=== PATIENT | female | born 1955 | race Caucasian/White ===

== ENCOUNTER → 2018-03-21 | Outpatient (CLI) | payer MEDICARE, MEDICAID ==
[~2018-03-21] MED LIST: ARANESP0.04 MG/0. IV; ASPIRIN CHEWABL81 M1 PO; BIOFLAX1000 MG PO; CALCIUM 1200 W/1 SGL PO; COLACE100 MG PO; FAMOTIDINE20 M1 PO; FAMOTIDINE20 MG PO; FERROUS SULFAT325 M1 PO; FOSRENOL1000 MG PO; GABAPENTIN100 M2 PO; GEMFIBROZIL600 MG PO; GLIPIZIDE XL5 MG PO; LIPITOR40 MG PO; LISINOPRIL-HYDR1 TA1 PO; LISINOPRIL20 MG PO; Metformin Hydr500 MG PO; NAPROSYN500 MG PO; NORCO 325 MG-51 TAB PO; PARVA-CAL 5001 EACH PO; PHOS LO667 MG PO; PREDNISONE5 MG PO; RENVELA800 MG PO; SIMVASTATIN40 MG PO; STOOL SOFTENER100 MG PO; TRIPHROCAPS SOFT1 MG PO; VITAMIN D32000 IU PO; [UNRECOGNIZED DRUG - OTHER]
== END | disposition home or self-care (01) ==
LOC: MAMMO 14:35
DX: Z12.31 Encounter for screening mammogram for malignant neoplasm of breast (principal)

== ENCOUNTER → 2018-05-25 | Outpatient (CLI) | payer MEDICARE, MEDICAID ==
[~2018-05-25] MED LIST changes: +ATORVASTATIN CA40 M1 PO; +LEVOFLOXACIN500 MG PO
== END | disposition home or self-care (01) ==
LOC: CARD 13:29
DX: Z01.818 Encounter for other preprocedural examination (principal); N19 Unspecified kidney failure; Z94.0 Kidney transplant status; Z99.2 Dependence on renal dialysis

== ENCOUNTER → 2018-07-05 | Outpatient (CLI) | payer MEDICARE, MEDICAID | END | disposition home or self-care (01) | LOC: ORTHO 01:32 | DX: M17.11 Unilateral primary osteoarthritis, right knee (principal) ==

== ENCOUNTER 2018-09-22 04:31 | Inpatient (IN) | payer MEDICARE, MEDICAID ==
[2018-09-22] VITALS (10 sets, daily range): BP systolic 85–136; BP diastolic 38–81
[~2018-09-22] VITALS: Ht 170.2 cm; Wt 96.8 kg
--- NOTE | ~2018-09-22 | PR ---
[place], [place] PROGRESS NOTE [id number] UN[facility] #: [id number] ROOM: 515 DOCTOR: MARY JO CASTILLO MD BIRTHDATE: [birth year] DOS: 09/24/2018 SUBJECTIVE: The patient was seen and examined. She is awake and alert, appears to be doing well. She denies shortness of breath, fevers, chills or night sweats. PHYSICAL EXAMINATION: VITAL SIGNS: Temperature 98.1, pulse 67, respiratory rate 18, blood pressure 123/59. HEENT: Shows no JVD. LUNGS: Clear. HEART: S1, S2. No rub. ABDOMEN: Soft, nontender. EXTREMITIES: Showed no edema. SKIN: Showed no rash. LABORATORY DATA: From September 23, potassium 4.0, BUN 42, creatinine 6.2; hemoglobin 13.9, white count of 8.2, platelets 136. Blood cultures and urine culture showed no growth to date. ASSESSMENT AND PLAN: 1. End-stage renal disease, on hemodialysis Tuesday, Tuesday and Tuesday through an upper extremity AV fistula. The patient will have dialysis tomorrow as per her normal schedule. Dose meds for end-stage renal disease. 2. Lower extremity weakness. The etiology is not clear. The patient has been started on antibiotics for what seems to be a questionable urinary tract infection. This seems consistent with contamination and her culture was negative. Would recommend discontinuing antibiotics. 3. Hyperphosphatemia. Continue phosphorus binders. 4. Neuropathy. Continue meds. 5. Mild troponin elevation. Cardiology has been consulted. 6. Consider discharge after dialysis tomorrow. MARY JO CASTILLO MD CM:PNTRANS [id number] MARY JO CASTILLO MD 09/25/18 0012 interface
--- NOTE | ~2018-09-22 | CON ---
[place], [place] REPORT OF CONSULTATION NAME: NINA RUIZ UNIT #: [id number] ROOM: 515 DOCTOR: MARY JO CASTILLO MD BIRTHDATE: [birth year] DOS: 09/23/2018 NEPHROLOGY CONSULTATION REASON FOR CONSULTATION: Management of dialysis/patient known to you. HISTORY OF PRESENT ILLNESS: A 63-year-old female. She has a history of end-stage renal disease. She undergoes dialysis Tuesday, Tuesday and Tuesday through a right upper extremity AV fistula. She dialyzes at [facility] under the care of our practice. The patient apparently presented to the hospital with weakness in the legs. She had a low-grade temperature as well. She had mild troponin elevations and mild elevated white count and she was started on antibiotics and Cardiology was consulted. She tells me she is feeling better. The patient did have her dialysis yesterday by orders given to the dialysis nurse. She reported no issues. She currently denies shortness of breath, fevers, chills or night sweats. Denies nausea or vomiting. The patient did have her dialysis treatment cut short yesterday due to her access clotting about 45 minutes early. I was notified of this and ordered that she did not need to be set up again to continue or complete her treatment. ALLERGIES: LISTED TO VANCOMYCIN. HOME MEDICATIONS: Included Fosrenol, atorvastatin, Triphrocaps, glipizide, gemfibrozil, gabapentin and aspirin. It seems she also was on lisinopril. PAST MEDICAL HISTORY: 1. End-stage renal disease, on hemodialysis as stated above. 2. Right upper extremity AV fistula. 3. Hypertension. 4. History of knee element. 5. Polycystic kidney disease. 6. Diabetes mellitus. 7. History of back surgery. 8. Tubal ligation. 9. Apparent previous kidney transplant. 10. Neuropathy. 11. Hyperlipidemia. FAMILY HISTORY: The patient has other family members with polycystic kidney disease. Otherwise, noncontributory. SOCIAL HISTORY: No tobacco, alcohol or illicit drugs. REVIEW OF SYSTEMS: As per HPI, otherwise a 10-point review of systems was reviewed and was negative. PHYSICAL EXAMINATION: VITAL SIGNS: Temperature 97.4, pulse 60, respiration rate 16, blood pressure 110/80. GENERAL: She is pleasant, alert, awake, oriented x 3, no acute distress. [place], [place] REPORT OF CONSULTATION NAME: NINA RUIZ UNIT #: [id number] ROOM: 515 DOCTOR: MARY JO CASTILLO MD BIRTHDATE: [birth year] HEENT: Shows no JVD. Sclerae are anicteric. Mucous membranes are moist. Oropharynx is clear. NECK: Supple. Trachea is midline. No lymphadenopathy or thyromegaly. LUNGS: Clear, no crackles or rales. There is no tactile fremitus. She is not using accessory muscles of respiration. HEART: S1, S2. No rub. No thrill or gallop. ABDOMEN: Soft, nontender. There is no organomegaly or rigidity, rebound or guarding. There is no CVA tenderness. EXTREMITIES: No edema. No lower extremity lymphadenopathy. Distal pulses are 2+. SKIN: Showed no overt rash. There is no petechia or purpura. Skin temperature is warm. NEUROLOGIC: She is awake, alert and following commands. Cranial nerves are intact. DIAGNOSTIC DATA: Hemoglobin 13.9, white count of 8.2, platelets 136. Sodium is 130, potassium 4.0, BUN 42, creatinine 6.2, CO2 of 30, calcium 8.9, phosphorus 3.5 and magnesium 2.4. IMPRESSION: 1. End-stage renal disease on hemodialysis Tuesday, Tuesday, Tuesday through an upper extremity AV fistula. 2. Lower extremity weakness. 3. Mild troponin elevation. 4. Hyperlipidemia. 5. Hyperphosphatemia. 6. Neuropathy. 7. History of polycystic kidney disease. PLAN: 1. We will continue dialysis as per normal schedule. 2. Dose meds for end-stage renal disease. 3. The patient has been started on antibiotics. Her urine culture seems consistent with a contamination due too numerous to count epithelial cells. Consider stopping antibiotics. 4. Home medications. 5. Await plans. Thank you for this consultation. We will follow with you. [place], [place] REPORT OF CONSULTATION NAME: NINA RUIZ UNIT #: [id number] ROOM: 515 DOCTOR: MARY JO CASTILLO MD BIRTHDATE: [birth year] MARY JO CASTILLO MD CM:CONSTR:REPORT OF CONSULTATION 1415 09/24/18 0137 interface
--- NOTE | ~2018-09-22 | EKG ---
[place], [place] ELECTROCARDIOGRAM REPORT NAME: NINA RUIZ UNIT #: [id number] ROOM: 515 DOCTOR: EPIPHANY DRAFT REPORT BIRTHDATE: [birth year] [facility] Test Date: 2018-09-22 Test Time: 04:35:15 Pat Name: NINA RUIZ Department: Room: [facility] Gender: F Hi Lift Operator: : 1955 Requested By: SHMUEL FRANCISCO Order Number: [id number] Reading MD: Sravanthi Silveira MD Measurements Intervals [place] Rate: 93 P: 0 ND: 156 QRS: -1 QRSD: 92 T: 23 QT: 339 QTc: 422 Interpretive Statements Sinus rhythm Low voltage, precordial leads Abnormal R-wave progression, late transition No previous ECG available for comparison Electronically Signed On 09-22-2018 5:06:49 PDT by Sravanthi Silveira MD CM:EKGRPT:ELECTROCARDIOGRAM REPORT [id number] SHMUEL FRANCISCO MD EPIPHANY DRAFT REPORT SHMUEL FRANCISCO MD
--- NOTE | ~2018-09-22 | EKG ---
[place], [place] ELECTROCARDIOGRAM REPORT NAME: NINA RUIZ UNIT #: [id number] ROOM: 515 DOCTOR: EPIPHANY DRAFT REPORT BIRTHDATE: [birth year] [facility] Test Date: 2018-09-22 Test Time: 11:03:01 Pat Name: NINA RUIZ Department: Room: [facility] Gender: F Assistant Designer: Shira Flanagan : 1955 Requested By: SHMUEL FRANCISCO Order Number: [id number] Reading MD: Sravanthi Silveira MD Measurements Intervals [place] Rate: 62 P: 32 CO: 177 QRS: 15 QRSD: 100 T: 33 QT: 438 QTc: 445 Interpretive Statements Sinus rhythm Consider anterior infarct Compared to ECG 09/22/2018 07:26:49 Myocardial infarct finding now present Electronically Signed On 09-22-2018 15:32:51 PDT by Sravanthi Silveira MD CM:EKGRPT:ELECTROCARDIOGRAM REPORT [id number] SHMUEL FRANCISCO MD EPIPHANY DRAFT REPORT SHMUEL FRANCISCO MD
--- NOTE | ~2018-09-22 | EKG ---
[place], [place] ELECTROCARDIOGRAM REPORT NAME: NINA RUIZ UNIT #: [id number] ROOM: 515 DOCTOR: EPIPHANY DRAFT REPORT BIRTHDATE: [birth year] [facility] Test Date: 2018-09-22 Test Time: 07:26:49 Pat Name: NINA RUIZ Department: Room: [facility] Gender: F Hardboard Coating Machine Operator: Shira Flanagan : 1955 Requested By: SHMUEL FRANCISCO Order Number: [id number] Reading MD: Sravanthi Silveira MD Measurements Intervals [place] Rate: 66 P: 39 WA: 156 QRS: 53 QRSD: 93 T: 59 QT: 426 QTc: 447 Interpretive Statements Sinus rhythm Low voltage, extremity and precordial leads No previous ECG available for comparison Electronically Signed On 09-22-2018 5:07:36 PDT by Sravanthi Silveira MD CM:EKGRPT:ELECTROCARDIOGRAM REPORT [id number] SHMUEL FRANCISCO MD EPIPHANY DRAFT REPORT SHMUEL FRANCISCO MD
[~2018-09-22 04:31] MED LIST changes: -ATORVASTATIN CA40 M1 PO; -LEVOFLOXACIN500 MG PO
[2018-09-22 05:11] LABS: HEMATOCRIT 44.1 % (37.0-47.0); HEMOGLOBIN 13.6 g/dl (12.0-16.0); MEAN CELL VOLUME 95.7 fl (81.0-99.0); MEAN CORPUSCULAR HGB 29.5 pg (27.0-31.0); MEAN CORPUSCULAR HGB CONC 30.8 g/dl (33.0-37.0); MEAN PLATELET VOLUME 10.8 fl (9.6-12.3); PLATELET COUNT AUTOMATED 165 10*3/uL (130-400); RED BLOOD COUNT 4.61 10*6/uL (4.10-5.10); RED CELL DISTRI WIDTH 17.2 % (0-14.5); WHITE BLOOD COUNT 12.4 10*3/uL (4.8-10.8)
[2018-09-22 05:22] LABS: ACT PARTIAL THROMBO TIME 28.2 SECONDS (20.0-32.1); INTERNATIONAL NORM RATIO 1.1 (2.0-3.5)
[2018-09-22 05:25] LABS: PHOSPHOROUS 1.6 mg/dL (2.5-4.9)
[2018-09-22 05:30] LABS: BASOPHILS 1 % (0-1); TOTAL CELLS COUNTED 100 #CELLS
[2018-09-22 05:31] LABS: ALBUMIN 3.4 gm/dl (3.1-4.5); CREATININE 8.28 mg/dL (0.55-1.02); PLATELET SUFFICIENCY NORMAL (NORMAL); POTASSIUM 4.7 mmol/L (3.5-5.1); TOTAL PROTEIN 8.1 gm/dL (6.4-8.2)
[2018-09-22 05:34] LABS: TROPONIN I 0.119 ng/ml (<0.045)
--- NOTE | 2018-09-22 05:34 | NUR ---
LAB CALLED WITH CRITICAL LACTIC LEVEL OF 2.4 AND TROPONIN 0.119. NOTIFIED.
--- NOTE | 2018-09-22 07:30 | NUR ---
A 63, admitted to 5E, under the services of JOANNE Paulino MD with a diagnosis of SEPSIS, END STAGE RENAL DISEASE ON DIALYSIS. Chief complaint is WEAKNESS. Patient arrived via bed from ER. Initial assessment completed. Vital signs taken and recorded. JOANNE PAULINO MD notified of admission to the unit. Orders received. See assessment for past medical history, medications and allergies. Patient and/or family oriented to unit. [address] visitation policy reviewed. Clothing/patient valuable form completed. SKIN INTACT. PT WEARS RIGHT KNEE BRACE. FABIAN JADE
[2018-09-22] MEDS ORDERED: ATORVASTATIN CA40 M1 PO (08:23)
--- NOTE | 2018-09-22 08:25 | NUR ---
CALLED DR BANKS FOR ADMISSION ORDERS. ORDERS RECEIVED. DIRECTED TO CALL DR KRISHNAN FOR FURTHER ORDERS. SPOKE TO DR KRISHNAN. HE STATED HE WILL PUT IN ORDERS
--- NOTE | 2018-09-22 08:40 | NUR ---
CALLED DR VENEGAS OFFICE REGARDING PT CONSULT. WAITING ELECTRICAL HARDWARE ENGINEER BACK
--- NOTE | 2018-09-22 08:52 | NUR ---
PTS HOME MEDICATIONS VERIFIED. CONTINUED PER DR BANKS
--- NOTE | 2018-09-22 11:14 | NUR ---
Nutritional Support Services Note: Pt was triggered for a nutritional consult for renal disease diet education. She stated she has numerous diet copies at home with information from the dialysis center she goes to from the RDN there. I had her explain to me foods to limit so I knew she had a good understanding and she does. No nutrition intervention needed at this time. Ellis Negrete [employer] CPD Student
--- NOTE | 2018-09-22 12:41 | NUR ---
CALLED [facility] TO INFORM DR JENKINS OF NEW PT CONSULT. WAITING SURVEY RESEARCH TEACHER BACK
--- NOTE | 2018-09-22 14:41 | NUR ---
Nursing screen received and chart reviewed. Patient admitted with sepsis, generalized weakness and ESRD. If patient should decline in ADLs or mobility then refer to OT. Thank you. Myriam Farmer OTR/L
[2018-09-23] VITALS: BP 88/50
--- NOTE | 2018-09-23 01:00 | NUR ---
Patient sleeping. Respirations relaxed and easy. Siderails up . [place] on. BRANDI RAY
--- NOTE | 2018-09-23 01:46 | NUR ---
24 HR chart check completed.
--- NOTE | 2018-09-23 05:43 | NUR ---
PATIENT SLEPT WELL THROUGHOUT THE NIGHT, RESPIRATIONS EASY AND NON LABORED.
[2018-09-23 07:03] LABS: BASO % 0.2 % (0.0-1.0); EOS # 0.1 10*3/uL (0.0-0.4); EOS % 0.6 % (1.0-4.0); HEMATOCRIT 45.3 % (37.0-47.0); HEMOGLOBIN 13.9 g/dl (12.0-16.0); LYMPH # 0.6 10*3/uL (1.3-4.4); LYMPH % 7.7 % (27.0-41.0); MEAN CELL VOLUME 95.4 fl (81.0-99.0); MEAN CORPUSCULAR HGB 29.3 pg (27.0-31.0); MEAN CORPUSCULAR HGB CONC 30.7 g/dl (33.0-37.0); MEAN PLATELET VOLUME 11.4 fl (9.6-12.3); MONO # 0.5 10*3/uL (0.1-1.0); MONO % 6.6 % (3.0-9.0); NEUT # 6.9 10*3/uL (2.3-7.9); NEUT % 84.5 % (47.0-73.0); PLATELET COUNT AUTOMATED 136 10*3/uL (130-400); RED BLOOD COUNT 4.75 10*6/uL (4.10-5.10); RED CELL DISTRI WIDTH 17.2 % (0-14.5); WHITE BLOOD COUNT 8.2 10*3/uL (4.8-10.8)
[2018-09-23 07:32] LABS: ALBUMIN 3.1 gm/dl (3.1-4.5); CREATININE 6.18 mg/dL (0.55-1.02); PHOSPHOROUS 3.5 mg/dL (2.5-4.9); TOTAL PROTEIN 7.5 gm/dL (6.4-8.2)
--- NOTE | 2018-09-23 07:35 | NUR ---
LAB CALLED WITH CRITICAL LOW BLOOD SUGAR. PT ASYMPTOMATIC. PT DRANK ORANGE JUICE WITH SUGAR PACKETS. WILL RECHECK.
[2018-09-23 08:00] VITALS: BP 120/61
--- NOTE | 2018-09-23 08:00 | NUR ---
PTS BLOOD SUGAR CRITICALLY LOW AT 44. PT REMAINS ASYMPTOMATIC. I ATTEMPTED TO CALL DR FRANCOIS. WAITING ENTRY LEVEL DRAFTER BACK
--- NOTE | 2018-09-23 09:56 | NUR ---
PTS REPEAT BLOOD GLUCOSE 204
[2018-09-23 10:23] LABS: BILIRUBIN NEGATIVE (NEGATIVE); BLOOD 2+ (NEGATIVE); CLARITY CLOUDY (CLEAR); COLOR YELLOW (YELLOW); GLUCOSE NEGATIVE (NEGATIVE); KETONE NEGATIVE (NEGATIVE); LEUKO ESTERASE 2+ (NEGATIVE); NITRITE POSITIVE (NEGATIVE); PH >= 9.0 (5.0-9.0); UROBILINOGEN 0.2 E.U./dl (0.2-1.0)
[2018-09-23 10:38] LABS: BACTERIA 4+; RBC 21-30 rbc/hpf (0-2); WBC TNTC wbc/hpf (0-5)
[2018-09-23 10:41] LABS: EPITHELIAL CELLS TNTC
[2018-09-23 12:00] VITALS: BP 110/80
[2018-09-23 16:00] VITALS: BP 140/68
[2018-09-23 20:00] VITALS: BP 111/60
--- NOTE | 2018-09-23 23:53 | NUR ---
24 HR chart check completed.
[2018-09-24] VITALS: BP 109/40
[2018-09-24 08:00] VITALS: BP 123/59
--- NOTE | 2018-09-24 08:40 | NUR ---
PT RESTING IN BED. NO DISTRESS NOTED. WILL MONITOR
[2018-09-24 12:00] VITALS: BP 145/68
[2018-09-24 16:00] VITALS: BP 141/65
--- NOTE | 2018-09-24 19:15 | NUR ---
ARRIVED ON SHIFT, INTRODUCED TO PATIENT, BEDSIDE REPORT RECIEVED, WHITE BOARD UPDATED NO NEEDS VOICED AT THIS TIME.
[2018-09-24 20:00] VITALS: BP 135/69
--- NOTE | 2018-09-24 22:47 | NUR ---
24 HR chart check completed.
[2018-09-25] VITALS: BP 117/50
--- NOTE | 2018-09-25 02:00 | NUR ---
Patient sleeping. Respirations relaxed and easy. Siderails up 2. [place] on. BRANDI RAY
[2018-09-25 04:00] VITALS: BP 120/60
[2018-09-25 08:00] VITALS: BP 110/66
--- NOTE | 2018-09-25 08:19 | NUR ---
PT RESTING IN BED,. NO DISTRESS NOTED. WILL MONITOR
--- NOTE | 2018-09-25 09:00 | NUR ---
Slimer in to see patient. She is currently not in her room. Will follow up at a later time.
[2018-09-25 09:14] LABS: BASO % 0.3 % (0.0-1.0); EOS # 0.1 10*3/uL (0.0-0.4); EOS % 2.3 % (1.0-4.0); HEMATOCRIT 39.6 % (37.0-47.0); HEMOGLOBIN 12.5 g/dl (12.0-16.0); LYMPH # 0.8 10*3/uL (1.3-4.4); LYMPH % 14.1 % (27.0-41.0); MEAN CELL VOLUME 93.4 fl (81.0-99.0); MEAN CORPUSCULAR HGB 29.5 pg (27.0-31.0); MEAN CORPUSCULAR HGB CONC 31.6 g/dl (33.0-37.0); MEAN PLATELET VOLUME 11.4 fl (9.6-12.3); MONO # 0.4 10*3/uL (0.1-1.0); MONO % 6.1 % (3.0-9.0); NEUT # 4.4 10*3/uL (2.3-7.9); NEUT % 76.9 % (47.0-73.0); PLATELET COUNT AUTOMATED 148 10*3/uL (130-400); RED BLOOD COUNT 4.24 10*6/uL (4.10-5.10); RED CELL DISTRI WIDTH 17.2 % (0-14.5); WHITE BLOOD COUNT 5.8 10*3/uL (4.8-10.8)
[2018-09-25 09:20] LABS: CREATININE 9.37 mg/dL (0.55-1.02); PHOSPHOROUS 2.6 mg/dL (2.5-4.9); POTASSIUM 5.2 mmol/L (3.5-5.1)
--- NOTE | 2018-09-25 14:30 | NUR ---
Abstract Clerk in to talk to patient. Patient states lives at home with her sister. There are 3 steps in the home. Physician: Dr. Paul Meadows Pharmacy: [facility] Home health services: none Patient's level of ADLs: INDEPENDENT Patient has working utilities: yes DME: none Follow-up physician's appointment after d/c: she prefers to make her own follow up appt after discharge Does patient want to access PORTAL?: no Discharge plan discussed with patient. She lives at home with her sister. She is independent in her ADLs and ambulation. Discussed home health care services and she denies any home needs at this time. She is HD MWF, chair time 0515, and she drives herself. When medically stable she will be discharged to home. Her sister will transport on discharge. NAEL PICHARDO
[2018-09-25 16:00] VITALS: BP 112/64
[2018-09-25 20:00] VITALS: BP 112/61
--- NOTE | 2018-09-25 20:52 | NUR ---
24 HR chart check completed.
--- NOTE | 2018-09-25 21:00 | NUR ---
SITTING AT BEDSIDE WITH NO DISTRESS NOTED. RESPIRATIONS EASY. LUNGS DIMINISHED WITH CRACKLES. PULSE OX 97% RA. RIGHT ARM FISTULA NOTED, +THRILL/BRUIT. CALL LIGHT WITHIN REACH. NO VOICED COMPLAINTS
[2018-09-26] VITALS: BP 110/56
--- NOTE | 2018-09-26 | NUR ---
SLEEPING. NO DISTRESS NOTED. RESPIRATIONS EASY. VSS. CALL LIGHT WITHIN REACH
--- NOTE | 2018-09-26 06:00 | NUR ---
SLEPT THROUGHOUT NIGHT WITH NO DISTRESS NOTED. RESPIRATIONS EASY. CALL LIGHT WITHIN REACH. NO VOICED COMPLAINTS THIS SHIFT
[2018-09-26 08:00] VITALS: BP 110/64
--- NOTE | 2018-09-26 08:30 | NUR ---
Weather Reporter in to see patient. No new needs or request at this time. She denies any home needs. When medically stable she will be discharged to home. Dr. Meadows notified of patient has met her hospital days.
[2018-09-26] MEDS ORDERED: LEVOFLOXACIN500 MG PO (11:02)
--- NOTE | 2018-09-26 12:42 | NUR ---
Discharge instructions reviewed with patient/family. Patient receptive and verbalizes understanding. Follow-up care arranged. Written instructions given to patient/family. OUMAR RODRIGUEZ
== END 2018-09-26 12:44 | disposition home or self-care (01) | DRG 871 ==
LOC: ED 04:31 → 5E 06:34 → EDHOLD 06:34 → 5E 07:12
PROVIDERS: Emergency Medicine Emergency Medical Services; Internal Medicine; Internal Medicine Nephrology; ADMIT Internal Medicine
PROC: 5A1D70Z Performance of Urinary Filtration, Intermittent, Less than 6 Hours Per Day (ICD-10-PCS; principal; 2018-09-22)
PROC: 5A1D70Z Performance of Urinary Filtration, Intermittent, Less than 6 Hours Per Day (ICD-10-PCS; 2018-09-25)
DX: A41.1 Sepsis due to other specified staphylococcus (principal); N18.6 End stage renal disease; N30.01 Acute cystitis with hematuria; Z94.0 Kidney transplant status; I12.0 Hypertensive chronic kidney disease with stage 5 chronic kidney disease or end stage renal disease; E83.39 Other disorders of phosphorus metabolism; R79.89 Other specified abnormal findings of blood chemistry; R79.82 Elevated C-reactive protein (CRP); I34.0 Nonrheumatic mitral (valve) insufficiency; E78.2 Mixed hyperlipidemia; E83.41 Hypermagnesemia; N28.1 Cyst of kidney, acquired; E11.22 Type 2 diabetes mellitus with diabetic chronic kidney disease; R53.1 Weakness; E11.40 Type 2 diabetes mellitus with diabetic neuropathy, unspecified; E11.649 Type 2 diabetes mellitus with hypoglycemia without coma; T38.3X5A Adverse effect of insulin and oral hypoglycemic [antidiabetic] drugs, initial encounter; Y92.89 Other specified places as the place of occurrence of the external cause; Z88.1 Allergy status to other antibiotic agents; Z98.51 Tubal ligation status; Z83.3 Family history of diabetes mellitus; Z82.49 Family history of ischemic heart disease and other diseases of the circulatory system; Z80.8 Family history of malignant neoplasm of other organs or systems; Z82.3 Family history of stroke; Z79.82 Long term (current) use of aspirin; Z79.84 Long term (current) use of oral hypoglycemic drugs; Z99.2 Dependence on renal dialysis; Z79.899 Other long term (current) drug therapy; Z84.1 Family history of disorders of kidney and ureter; I95.9 Hypotension, unspecified

== ENCOUNTER → 2019-03-22 | Outpatient (CLI) | payer MEDICARE, MEDICAID ==
[~2019-03-22] MED LIST changes: +ATORVASTATIN CA40 M1 PO; +LEVOFLOXACIN500 MG PO
== END | disposition home or self-care (01) ==
LOC: MAMMO 10:24
DX: Z12.31 Encounter for screening mammogram for malignant neoplasm of breast (principal)

== ENCOUNTER → 2020-05-27 | Outpatient (CLI) | payer MEDICARE, MEDICAID ==
[2020-05-27 14:02] LABS: BASO % 0.5 % (0.0-1.0); EOS # 0.1 10*3/uL (0.0-0.4); EOS % 1.3 % (1.0-4.0); HEMATOCRIT 43.5 % (37.0-47.0); LYMPH # 1.7 10*3/uL (1.3-4.4); LYMPH % 27.2 % (27.0-41.0); MEAN CELL VOLUME 96.9 fl (81.0-99.0); MEAN CORPUSCULAR HGB 28.7 pg (27.0-31.0); MEAN CORPUSCULAR HGB CONC 29.7 g/dl (33.0-37.0); MEAN PLATELET VOLUME 10.9 fl (9.6-12.3); MONO # 0.5 10*3/uL (0.1-1.0); MONO % 8.1 % (3.0-9.0); NEUT # 3.9 10*3/uL (2.3-7.9); NEUT % 62.7 % (47.0-73.0); PLATELET COUNT AUTOMATED 169 10*3/uL (130-400); RED BLOOD COUNT 4.49 10*6/uL (4.10-5.10); RED CELL DISTRI WIDTH 18.6 % (0-14.5); WHITE BLOOD COUNT 6.2 10*3/uL (4.8-10.8)
[2020-05-27 14:13] LABS: ALBUMIN 3.4 gm/dl (3.1-4.5); CREATININE 6.81 mg/dL (0.55-1.02); FREE T4 0.73 ng/dl (0.76-1.46); POTASSIUM 4.4 mmol/L (3.5-5.1); TOTAL PROTEIN 7.9 gm/dL (6.4-8.2)
[2020-05-27 14:18] LABS: THYROID STIM HORMONE (HS) 1.54 uIU/ml (0.358-4.75)
== END | disposition home or self-care (01) ==
LOC: MAMMO 13:12 → LAB 13:12 → MAMMO 15:00
PROVIDERS: ATTEND Internal Medicine
DX: Z12.31 Encounter for screening mammogram for malignant neoplasm of breast (principal); E61.1 Iron deficiency; E11.9 Type 2 diabetes mellitus without complications; I10 Essential (primary) hypertension; E78.5 Hyperlipidemia, unspecified

== ENCOUNTER → 2021-12-08 | Outpatient (CLI) | payer MEDICARE, MEDICAID | END | disposition home or self-care (01) | LOC: MAMMO 14:38 | PROVIDERS: ATTEND Internal Medicine | DX: Z12.31 Encounter for screening mammogram for malignant neoplasm of breast (principal) ==

== ENCOUNTER → 2021-12-24 | Day surgery (SDC) | payer MEDICARE, MEDICAID ==
[~2021-12-24] VITALS: Ht 172.7 cm; Wt 90.7 kg
[2021-12-24 08:52] VITALS: BP 129/82
[2021-12-24 10:01] VITALS: BP 104/42
[2021-12-24 10:16] VITALS: BP 124/50
[2021-12-24 10:28] VITALS: BP 128/59
[2021-12-24 11:01] VITALS: BP 104/42
== END | disposition home or self-care (01) ==
LOC: SDC 12-21 10:15
PROVIDERS: ATTEND Surgery
DX: Z12.11 Encounter for screening for malignant neoplasm of colon (principal); K63.5 Polyp of colon; K57.30 Diverticulosis of large intestine without perforation or abscess without bleeding; K21.9 Gastro-esophageal reflux disease without esophagitis; I10 Essential (primary) hypertension; E11.9 Type 2 diabetes mellitus without complications; Z87.891 Personal history of nicotine dependence; Z88.8 Allergy status to other drugs, medicaments and biological substances; Z79.899 Other long term (current) drug therapy

== ENCOUNTER → 2022-12-16 | Outpatient (CLI) | payer MEDICARE, MEDICAID ==
[~2022-12-16] MED LIST changes: +METOPROLOL SUCC25 M2 PO; +TRAD5TAB1 PO
== END | disposition home or self-care (01) ==
LOC: MAMMO 01:24
PROVIDERS: ATTEND Internal Medicine
DX: Z12.31 Encounter for screening mammogram for malignant neoplasm of breast (principal)

== ENCOUNTER → 2023-09-13 | Outpatient (CLI) | payer MEDICARE, MEDICAID | END | disposition home or self-care (01) | LOC: WOUNDCARE 03:01 | PROVIDERS: ATTEND Nurse Practitioner Family | DX: T87.81 Dehiscence of amputation stump (principal); S90.821A Blister (nonthermal), right foot, initial encounter; E11.51 Type 2 diabetes mellitus with diabetic peripheral angiopathy without gangrene; E11.22 Type 2 diabetes mellitus with diabetic chronic kidney disease; I12.0 Hypertensive chronic kidney disease with stage 5 chronic kidney disease or end stage renal disease; N18.6 End stage renal disease; E11.69 Type 2 diabetes mellitus with other specified complication; M86.172 Other acute osteomyelitis, left ankle and foot; K21.9 Gastro-esophageal reflux disease without esophagitis; E78.00 Pure hypercholesterolemia, unspecified; R26.2 Difficulty in walking, not elsewhere classified; Z99.2 Dependence on renal dialysis; Z87.891 Personal history of nicotine dependence; X58.XXXA Exposure to other specified factors, initial encounter; Y93.89 Activity, other specified; Y83.5 Amputation of limb(s) as the cause of abnormal reaction of the patient, or of later complication, without mention of misadventure at the time of the procedure; Y92.89 Other specified places as the place of occurrence of the external cause; Y99.8 Other external cause status ==

== ENCOUNTER → 2023-09-20 | Outpatient (CLI) | payer MEDICARE, MEDICAID | END | disposition home or self-care (01) | LOC: WOUNDCARE 00:09 | PROVIDERS: ATTEND Nurse Practitioner Family | DX: T87.81 Dehiscence of amputation stump (principal); S90.821D Blister (nonthermal), right foot, subsequent encounter; L84 Corns and callosities; E11.51 Type 2 diabetes mellitus with diabetic peripheral angiopathy without gangrene; E11.22 Type 2 diabetes mellitus with diabetic chronic kidney disease; I12.0 Hypertensive chronic kidney disease with stage 5 chronic kidney disease or end stage renal disease; N18.6 End stage renal disease; E11.69 Type 2 diabetes mellitus with other specified complication; M86.172 Other acute osteomyelitis, left ankle and foot; K21.9 Gastro-esophageal reflux disease without esophagitis; E78.00 Pure hypercholesterolemia, unspecified; R26.2 Difficulty in walking, not elsewhere classified; Z99.2 Dependence on renal dialysis; Z87.891 Personal history of nicotine dependence; X58.XXXD Exposure to other specified factors, subsequent encounter; Y83.5 Amputation of limb(s) as the cause of abnormal reaction of the patient, or of later complication, without mention of misadventure at the time of the procedure ==

== ENCOUNTER → 2023-09-28 | Outpatient (CLI) | payer MEDICARE, MEDICAID | END | disposition home or self-care (01) | LOC: WOUNDCARE 01:14 | PROVIDERS: ATTEND Nurse Practitioner Family | DX: T87.81 Dehiscence of amputation stump (principal); E11.621 Type 2 diabetes mellitus with foot ulcer; L97.511 Non-pressure chronic ulcer of other part of right foot limited to breakdown of skin; L84 Corns and callosities; E11.51 Type 2 diabetes mellitus with diabetic peripheral angiopathy without gangrene; E11.22 Type 2 diabetes mellitus with diabetic chronic kidney disease; I12.0 Hypertensive chronic kidney disease with stage 5 chronic kidney disease or end stage renal disease; N18.6 End stage renal disease; E11.69 Type 2 diabetes mellitus with other specified complication; M86.172 Other acute osteomyelitis, left ankle and foot; K21.9 Gastro-esophageal reflux disease without esophagitis; E78.00 Pure hypercholesterolemia, unspecified; R26.2 Difficulty in walking, not elsewhere classified; Z99.2 Dependence on renal dialysis; Z87.891 Personal history of nicotine dependence; Z79.82 Long term (current) use of aspirin; Z79.899 Other long term (current) drug therapy; Y83.5 Amputation of limb(s) as the cause of abnormal reaction of the patient, or of later complication, without mention of misadventure at the time of the procedure ==

== ENCOUNTER → 2023-10-04 | Outpatient (CLI) | payer MEDICARE, MEDICAID | END | disposition home or self-care (01) | LOC: WOUNDCARE 02:53 | PROVIDERS: ATTEND Nurse Practitioner Family | DX: T87.81 Dehiscence of amputation stump (principal); E11.621 Type 2 diabetes mellitus with foot ulcer; L97.512 Non-pressure chronic ulcer of other part of right foot with fat layer exposed; L84 Corns and callosities; E11.51 Type 2 diabetes mellitus with diabetic peripheral angiopathy without gangrene; E11.22 Type 2 diabetes mellitus with diabetic chronic kidney disease; I12.0 Hypertensive chronic kidney disease with stage 5 chronic kidney disease or end stage renal disease; N18.6 End stage renal disease; E11.69 Type 2 diabetes mellitus with other specified complication; M86.172 Other acute osteomyelitis, left ankle and foot; K21.9 Gastro-esophageal reflux disease without esophagitis; E78.00 Pure hypercholesterolemia, unspecified; R26.2 Difficulty in walking, not elsewhere classified; Z99.2 Dependence on renal dialysis; Z87.891 Personal history of nicotine dependence; Z79.82 Long term (current) use of aspirin; Z79.899 Other long term (current) drug therapy; Y83.5 Amputation of limb(s) as the cause of abnormal reaction of the patient, or of later complication, without mention of misadventure at the time of the procedure ==

== ENCOUNTER → 2023-10-11 | Outpatient (CLI) | payer MEDICARE, MEDICAID | END | disposition home or self-care (01) | LOC: WOUNDCARE 02:23 | PROVIDERS: ATTEND Nurse Practitioner Family | DX: T87.81 Dehiscence of amputation stump (principal); E11.621 Type 2 diabetes mellitus with foot ulcer; L97.512 Non-pressure chronic ulcer of other part of right foot with fat layer exposed; L84 Corns and callosities; E11.51 Type 2 diabetes mellitus with diabetic peripheral angiopathy without gangrene; E11.22 Type 2 diabetes mellitus with diabetic chronic kidney disease; I12.0 Hypertensive chronic kidney disease with stage 5 chronic kidney disease or end stage renal disease; N18.6 End stage renal disease; E11.69 Type 2 diabetes mellitus with other specified complication; M86.172 Other acute osteomyelitis, left ankle and foot; K21.9 Gastro-esophageal reflux disease without esophagitis; E78.00 Pure hypercholesterolemia, unspecified; R26.2 Difficulty in walking, not elsewhere classified; Z87.891 Personal history of nicotine dependence; Z99.2 Dependence on renal dialysis; Z79.82 Long term (current) use of aspirin; Z79.899 Other long term (current) drug therapy; Y83.5 Amputation of limb(s) as the cause of abnormal reaction of the patient, or of later complication, without mention of misadventure at the time of the procedure ==

== ENCOUNTER → 2023-10-18 | Outpatient (CLI) | payer MEDICARE, MEDICAID | END | disposition home or self-care (01) | LOC: WOUNDCARE 00:03 | PROVIDERS: ATTEND Nurse Practitioner Family | DX: T87.81 Dehiscence of amputation stump (principal); E11.621 Type 2 diabetes mellitus with foot ulcer; L97.512 Non-pressure chronic ulcer of other part of right foot with fat layer exposed; L84 Corns and callosities; E11.51 Type 2 diabetes mellitus with diabetic peripheral angiopathy without gangrene; E11.22 Type 2 diabetes mellitus with diabetic chronic kidney disease; I12.0 Hypertensive chronic kidney disease with stage 5 chronic kidney disease or end stage renal disease; N18.6 End stage renal disease; E11.69 Type 2 diabetes mellitus with other specified complication; M86.172 Other acute osteomyelitis, left ankle and foot; K21.9 Gastro-esophageal reflux disease without esophagitis; E78.00 Pure hypercholesterolemia, unspecified; R26.2 Difficulty in walking, not elsewhere classified; Z87.891 Personal history of nicotine dependence; Z99.2 Dependence on renal dialysis; Z79.82 Long term (current) use of aspirin; Z79.899 Other long term (current) drug therapy; Y83.5 Amputation of limb(s) as the cause of abnormal reaction of the patient, or of later complication, without mention of misadventure at the time of the procedure ==

== ENCOUNTER → 2023-10-25 | Outpatient (CLI) | payer MEDICARE, MEDICAID | END | disposition home or self-care (01) | LOC: WOUNDCARE 02:36 | PROVIDERS: ATTEND Nurse Practitioner Family | DX: T87.81 Dehiscence of amputation stump (principal); E11.621 Type 2 diabetes mellitus with foot ulcer; L97.512 Non-pressure chronic ulcer of other part of right foot with fat layer exposed; L84 Corns and callosities; E11.51 Type 2 diabetes mellitus with diabetic peripheral angiopathy without gangrene; E11.22 Type 2 diabetes mellitus with diabetic chronic kidney disease; I12.0 Hypertensive chronic kidney disease with stage 5 chronic kidney disease or end stage renal disease; N18.6 End stage renal disease; E11.69 Type 2 diabetes mellitus with other specified complication; M86.172 Other acute osteomyelitis, left ankle and foot; K21.9 Gastro-esophageal reflux disease without esophagitis; E78.00 Pure hypercholesterolemia, unspecified; R26.2 Difficulty in walking, not elsewhere classified; Z87.891 Personal history of nicotine dependence; Z99.2 Dependence on renal dialysis; Z79.82 Long term (current) use of aspirin; Z79.899 Other long term (current) drug therapy; Y83.5 Amputation of limb(s) as the cause of abnormal reaction of the patient, or of later complication, without mention of misadventure at the time of the procedure ==

== ENCOUNTER → 2023-11-01 | Outpatient (CLI) | payer MEDICARE, MEDICAID | END | disposition home or self-care (01) | LOC: WOUNDCARE 01:49 → LAB 01:49 → WOUNDCARE 05:15 | PROVIDERS: ATTEND Nurse Practitioner Family | DX: R60.9 Edema, unspecified (principal); L53.9 Erythematous condition, unspecified ==

== ENCOUNTER → 2023-11-08 | Outpatient (CLI) | payer MEDICARE, MEDICAID | END | disposition home or self-care (01) | LOC: WOUNDCARE 02:07 | PROVIDERS: ATTEND Nurse Practitioner Family | DX: T81.31XD Disruption of external operation (surgical) wound, not elsewhere classified, subsequent encounter (principal); E11.621 Type 2 diabetes mellitus with foot ulcer; L97.512 Non-pressure chronic ulcer of other part of right foot with fat layer exposed; E78.00 Pure hypercholesterolemia, unspecified; I10 Essential (primary) hypertension; E11.51 Type 2 diabetes mellitus with diabetic peripheral angiopathy without gangrene; K21.9 Gastro-esophageal reflux disease without esophagitis; E11.69 Type 2 diabetes mellitus with other specified complication; M86.9 Osteomyelitis, unspecified; E11.22 Type 2 diabetes mellitus with diabetic chronic kidney disease; I12.0 Hypertensive chronic kidney disease with stage 5 chronic kidney disease or end stage renal disease; N18.6 End stage renal disease; Z87.891 Personal history of nicotine dependence; Z99.2 Dependence on renal dialysis; Y83.8 Other surgical procedures as the cause of abnormal reaction of the patient, or of later complication, without mention of misadventure at the time of the procedure ==

== ENCOUNTER → 2023-11-29 | Outpatient (CLI) | payer OTHER, MEDICAID | END | disposition home or self-care (01) | LOC: WOUNDCARE 02:11 | PROVIDERS: ATTEND Nurse Practitioner Family | DX: T81.31XD Disruption of external operation (surgical) wound, not elsewhere classified, subsequent encounter (principal); E11.621 Type 2 diabetes mellitus with foot ulcer; L97.511 Non-pressure chronic ulcer of other part of right foot limited to breakdown of skin; L84 Corns and callosities; E11.51 Type 2 diabetes mellitus with diabetic peripheral angiopathy without gangrene; E11.22 Type 2 diabetes mellitus with diabetic chronic kidney disease; I12.0 Hypertensive chronic kidney disease with stage 5 chronic kidney disease or end stage renal disease; N18.6 End stage renal disease; E11.69 Type 2 diabetes mellitus with other specified complication; M86.172 Other acute osteomyelitis, left ankle and foot; K21.9 Gastro-esophageal reflux disease without esophagitis; E78.00 Pure hypercholesterolemia, unspecified; R26.2 Difficulty in walking, not elsewhere classified; Z87.891 Personal history of nicotine dependence; Z99.2 Dependence on renal dialysis; Z79.82 Long term (current) use of aspirin; Z79.899 Other long term (current) drug therapy; Y83.8 Other surgical procedures as the cause of abnormal reaction of the patient, or of later complication, without mention of misadventure at the time of the procedure ==

== ENCOUNTER → 2023-12-08 | Outpatient (CLI) | payer OTHER, MEDICAID | END | disposition home or self-care (01) | LOC: WOUNDCARE 02:50 | PROVIDERS: ATTEND Nurse Practitioner Family | DX: T81.31XD Disruption of external operation (surgical) wound, not elsewhere classified, subsequent encounter (principal); E11.621 Type 2 diabetes mellitus with foot ulcer; L97.522 Non-pressure chronic ulcer of other part of left foot with fat layer exposed; L84 Corns and callosities; E11.51 Type 2 diabetes mellitus with diabetic peripheral angiopathy without gangrene; E11.22 Type 2 diabetes mellitus with diabetic chronic kidney disease; I12.0 Hypertensive chronic kidney disease with stage 5 chronic kidney disease or end stage renal disease; N18.6 End stage renal disease; E11.69 Type 2 diabetes mellitus with other specified complication; M86.172 Other acute osteomyelitis, left ankle and foot; K21.9 Gastro-esophageal reflux disease without esophagitis; E78.00 Pure hypercholesterolemia, unspecified; R26.2 Difficulty in walking, not elsewhere classified; Z87.891 Personal history of nicotine dependence; Z99.2 Dependence on renal dialysis; Z79.82 Long term (current) use of aspirin; Z79.899 Other long term (current) drug therapy; Y83.8 Other surgical procedures as the cause of abnormal reaction of the patient, or of later complication, without mention of misadventure at the time of the procedure ==

== ENCOUNTER → 2023-12-12 | Outpatient (CLI) | payer OTHER, MEDICAID | END | disposition home or self-care (01) | LOC: WOUNDCARE 01:06 | PROVIDERS: ATTEND Nurse Practitioner Family | DX: M86.671 Other chronic osteomyelitis, right ankle and foot (principal); M86.672 Other chronic osteomyelitis, left ankle and foot; E11.69 Type 2 diabetes mellitus with other specified complication; T81.31XD Disruption of external operation (surgical) wound, not elsewhere classified, subsequent encounter; E11.621 Type 2 diabetes mellitus with foot ulcer; L97.522 Non-pressure chronic ulcer of other part of left foot with fat layer exposed; L84 Corns and callosities; E11.51 Type 2 diabetes mellitus with diabetic peripheral angiopathy without gangrene; E11.22 Type 2 diabetes mellitus with diabetic chronic kidney disease; I12.0 Hypertensive chronic kidney disease with stage 5 chronic kidney disease or end stage renal disease; N18.6 End stage renal disease; K21.9 Gastro-esophageal reflux disease without esophagitis; E78.00 Pure hypercholesterolemia, unspecified; R26.2 Difficulty in walking, not elsewhere classified; Z87.891 Personal history of nicotine dependence; Z99.2 Dependence on renal dialysis; Z79.82 Long term (current) use of aspirin; Z79.899 Other long term (current) drug therapy; Y83.8 Other surgical procedures as the cause of abnormal reaction of the patient, or of later complication, without mention of misadventure at the time of the procedure ==

== ENCOUNTER → 2023-12-13 | Outpatient (CLI) | payer OTHER, MEDICAID | END | disposition home or self-care (01) | LOC: WOUNDCARE 01:49 | PROVIDERS: ATTEND Nurse Practitioner Family | DX: M86.671 Other chronic osteomyelitis, right ankle and foot (principal); M86.672 Other chronic osteomyelitis, left ankle and foot; E11.69 Type 2 diabetes mellitus with other specified complication; T81.31XD Disruption of external operation (surgical) wound, not elsewhere classified, subsequent encounter; E11.621 Type 2 diabetes mellitus with foot ulcer; L97.522 Non-pressure chronic ulcer of other part of left foot with fat layer exposed; L84 Corns and callosities; E11.51 Type 2 diabetes mellitus with diabetic peripheral angiopathy without gangrene; E11.22 Type 2 diabetes mellitus with diabetic chronic kidney disease; I12.0 Hypertensive chronic kidney disease with stage 5 chronic kidney disease or end stage renal disease; N18.6 End stage renal disease; K21.9 Gastro-esophageal reflux disease without esophagitis; E78.00 Pure hypercholesterolemia, unspecified; R26.2 Difficulty in walking, not elsewhere classified; Z87.891 Personal history of nicotine dependence; Z99.2 Dependence on renal dialysis; Z79.82 Long term (current) use of aspirin; Z79.899 Other long term (current) drug therapy; Y83.8 Other surgical procedures as the cause of abnormal reaction of the patient, or of later complication, without mention of misadventure at the time of the procedure ==

== ENCOUNTER → 2023-12-14 | Outpatient (CLI) | payer OTHER, MEDICAID | END | disposition home or self-care (01) | LOC: WOUNDCARE 01:01 | PROVIDERS: ATTEND Nurse Practitioner Family | DX: M86.671 Other chronic osteomyelitis, right ankle and foot (principal); M86.672 Other chronic osteomyelitis, left ankle and foot; E11.69 Type 2 diabetes mellitus with other specified complication; T81.31XD Disruption of external operation (surgical) wound, not elsewhere classified, subsequent encounter; E11.621 Type 2 diabetes mellitus with foot ulcer; L97.522 Non-pressure chronic ulcer of other part of left foot with fat layer exposed; L84 Corns and callosities; E11.51 Type 2 diabetes mellitus with diabetic peripheral angiopathy without gangrene; E11.22 Type 2 diabetes mellitus with diabetic chronic kidney disease; I12.0 Hypertensive chronic kidney disease with stage 5 chronic kidney disease or end stage renal disease; N18.6 End stage renal disease; K21.9 Gastro-esophageal reflux disease without esophagitis; E78.00 Pure hypercholesterolemia, unspecified; R26.2 Difficulty in walking, not elsewhere classified; Z87.891 Personal history of nicotine dependence; Z99.2 Dependence on renal dialysis; Z79.82 Long term (current) use of aspirin; Z79.899 Other long term (current) drug therapy; Y83.8 Other surgical procedures as the cause of abnormal reaction of the patient, or of later complication, without mention of misadventure at the time of the procedure ==

== ENCOUNTER → 2023-12-15 | Outpatient (CLI) | payer OTHER, MEDICAID | END | disposition home or self-care (01) | LOC: WOUNDCARE 02:34 | PROVIDERS: ATTEND Nurse Practitioner Family | DX: M86.671 Other chronic osteomyelitis, right ankle and foot (principal); M86.672 Other chronic osteomyelitis, left ankle and foot; E11.69 Type 2 diabetes mellitus with other specified complication; T81.31XD Disruption of external operation (surgical) wound, not elsewhere classified, subsequent encounter; E11.621 Type 2 diabetes mellitus with foot ulcer; L97.522 Non-pressure chronic ulcer of other part of left foot with fat layer exposed; L84 Corns and callosities; E11.51 Type 2 diabetes mellitus with diabetic peripheral angiopathy without gangrene; E11.22 Type 2 diabetes mellitus with diabetic chronic kidney disease; I12.0 Hypertensive chronic kidney disease with stage 5 chronic kidney disease or end stage renal disease; N18.6 End stage renal disease; K21.9 Gastro-esophageal reflux disease without esophagitis; E78.00 Pure hypercholesterolemia, unspecified; R26.2 Difficulty in walking, not elsewhere classified; Z87.891 Personal history of nicotine dependence; Z99.2 Dependence on renal dialysis; Z79.82 Long term (current) use of aspirin; Z79.899 Other long term (current) drug therapy; Y83.8 Other surgical procedures as the cause of abnormal reaction of the patient, or of later complication, without mention of misadventure at the time of the procedure ==

== ENCOUNTER → 2023-12-16 | Outpatient (CLI) | payer OTHER, MEDICAID | END | disposition home or self-care (01) | LOC: WOUNDCARE 01:37 | PROVIDERS: ATTEND Nurse Practitioner Family | DX: M86.671 Other chronic osteomyelitis, right ankle and foot (principal); M86.672 Other chronic osteomyelitis, left ankle and foot; E11.69 Type 2 diabetes mellitus with other specified complication; T81.31XD Disruption of external operation (surgical) wound, not elsewhere classified, subsequent encounter; E11.621 Type 2 diabetes mellitus with foot ulcer; L97.522 Non-pressure chronic ulcer of other part of left foot with fat layer exposed; L84 Corns and callosities; E11.51 Type 2 diabetes mellitus with diabetic peripheral angiopathy without gangrene; E11.22 Type 2 diabetes mellitus with diabetic chronic kidney disease; I12.0 Hypertensive chronic kidney disease with stage 5 chronic kidney disease or end stage renal disease; N18.6 End stage renal disease; K21.9 Gastro-esophageal reflux disease without esophagitis; E78.00 Pure hypercholesterolemia, unspecified; R26.2 Difficulty in walking, not elsewhere classified; Z87.891 Personal history of nicotine dependence; Z99.2 Dependence on renal dialysis; Z79.82 Long term (current) use of aspirin; Z79.899 Other long term (current) drug therapy; Y83.8 Other surgical procedures as the cause of abnormal reaction of the patient, or of later complication, without mention of misadventure at the time of the procedure ==

== ENCOUNTER → 2023-12-19 | Outpatient (CLI) | payer OTHER, MEDICAID | END | disposition home or self-care (01) | LOC: WOUNDCARE 02:21 | PROVIDERS: ATTEND Nurse Practitioner Family | DX: M86.671 Other chronic osteomyelitis, right ankle and foot (principal); M86.672 Other chronic osteomyelitis, left ankle and foot; E11.69 Type 2 diabetes mellitus with other specified complication; T81.31XD Disruption of external operation (surgical) wound, not elsewhere classified, subsequent encounter; E11.621 Type 2 diabetes mellitus with foot ulcer; L97.512 Non-pressure chronic ulcer of other part of right foot with fat layer exposed; L84 Corns and callosities; E11.51 Type 2 diabetes mellitus with diabetic peripheral angiopathy without gangrene; E11.22 Type 2 diabetes mellitus with diabetic chronic kidney disease; I12.0 Hypertensive chronic kidney disease with stage 5 chronic kidney disease or end stage renal disease; N18.6 End stage renal disease; K21.9 Gastro-esophageal reflux disease without esophagitis; E78.00 Pure hypercholesterolemia, unspecified; R26.2 Difficulty in walking, not elsewhere classified; Z87.891 Personal history of nicotine dependence; Z99.2 Dependence on renal dialysis; Z79.82 Long term (current) use of aspirin; Z79.899 Other long term (current) drug therapy; Y83.8 Other surgical procedures as the cause of abnormal reaction of the patient, or of later complication, without mention of misadventure at the time of the procedure ==

== ENCOUNTER → 2023-12-20 | Outpatient (CLI) | payer OTHER, MEDICAID | END | disposition home or self-care (01) | LOC: WOUNDCARE 00:52 | PROVIDERS: ATTEND Nurse Practitioner Family | DX: M86.671 Other chronic osteomyelitis, right ankle and foot (principal); M86.672 Other chronic osteomyelitis, left ankle and foot; E11.69 Type 2 diabetes mellitus with other specified complication; T81.31XD Disruption of external operation (surgical) wound, not elsewhere classified, subsequent encounter; E11.621 Type 2 diabetes mellitus with foot ulcer; L97.512 Non-pressure chronic ulcer of other part of right foot with fat layer exposed; L84 Corns and callosities; E11.51 Type 2 diabetes mellitus with diabetic peripheral angiopathy without gangrene; E11.22 Type 2 diabetes mellitus with diabetic chronic kidney disease; I12.0 Hypertensive chronic kidney disease with stage 5 chronic kidney disease or end stage renal disease; N18.6 End stage renal disease; K21.9 Gastro-esophageal reflux disease without esophagitis; E78.00 Pure hypercholesterolemia, unspecified; R26.2 Difficulty in walking, not elsewhere classified; Z87.891 Personal history of nicotine dependence; Z99.2 Dependence on renal dialysis; Z79.82 Long term (current) use of aspirin; Z79.899 Other long term (current) drug therapy; Y83.8 Other surgical procedures as the cause of abnormal reaction of the patient, or of later complication, without mention of misadventure at the time of the procedure ==

== ENCOUNTER → 2023-12-21 | Outpatient (CLI) | payer OTHER, MEDICAID | END | disposition home or self-care (01) | LOC: WOUNDCARE 01:34 | PROVIDERS: ATTEND Nurse Practitioner Family | DX: M86.671 Other chronic osteomyelitis, right ankle and foot (principal); M86.672 Other chronic osteomyelitis, left ankle and foot; E11.69 Type 2 diabetes mellitus with other specified complication; T81.31XD Disruption of external operation (surgical) wound, not elsewhere classified, subsequent encounter; E11.621 Type 2 diabetes mellitus with foot ulcer; L97.522 Non-pressure chronic ulcer of other part of left foot with fat layer exposed; L84 Corns and callosities; E11.51 Type 2 diabetes mellitus with diabetic peripheral angiopathy without gangrene; E11.22 Type 2 diabetes mellitus with diabetic chronic kidney disease; I12.0 Hypertensive chronic kidney disease with stage 5 chronic kidney disease or end stage renal disease; N18.6 End stage renal disease; K21.9 Gastro-esophageal reflux disease without esophagitis; E78.00 Pure hypercholesterolemia, unspecified; R26.2 Difficulty in walking, not elsewhere classified; Z87.891 Personal history of nicotine dependence; Z99.2 Dependence on renal dialysis; Z79.82 Long term (current) use of aspirin; Z79.899 Other long term (current) drug therapy; Y83.8 Other surgical procedures as the cause of abnormal reaction of the patient, or of later complication, without mention of misadventure at the time of the procedure ==

== ENCOUNTER → 2023-12-22 | Outpatient (CLI) | payer OTHER, MEDICAID | END | disposition home or self-care (01) | LOC: WOUNDCARE 02:59 | PROVIDERS: ATTEND Nurse Practitioner Family | DX: M86.671 Other chronic osteomyelitis, right ankle and foot (principal); M86.672 Other chronic osteomyelitis, left ankle and foot; E11.69 Type 2 diabetes mellitus with other specified complication; T81.31XD Disruption of external operation (surgical) wound, not elsewhere classified, subsequent encounter; E11.621 Type 2 diabetes mellitus with foot ulcer; L97.522 Non-pressure chronic ulcer of other part of left foot with fat layer exposed; L84 Corns and callosities; E11.51 Type 2 diabetes mellitus with diabetic peripheral angiopathy without gangrene; E11.22 Type 2 diabetes mellitus with diabetic chronic kidney disease; I12.0 Hypertensive chronic kidney disease with stage 5 chronic kidney disease or end stage renal disease; N18.6 End stage renal disease; K21.9 Gastro-esophageal reflux disease without esophagitis; E78.00 Pure hypercholesterolemia, unspecified; R26.2 Difficulty in walking, not elsewhere classified; Z87.891 Personal history of nicotine dependence; Z99.2 Dependence on renal dialysis; Z79.82 Long term (current) use of aspirin; Z79.899 Other long term (current) drug therapy; Y83.8 Other surgical procedures as the cause of abnormal reaction of the patient, or of later complication, without mention of misadventure at the time of the procedure ==

== ENCOUNTER → 2023-12-23 | Outpatient (CLI) | payer OTHER, MEDICAID | END | disposition home or self-care (01) | LOC: WOUNDCARE 02:51 | PROVIDERS: ATTEND Nurse Practitioner Family | DX: M86.671 Other chronic osteomyelitis, right ankle and foot (principal); M86.672 Other chronic osteomyelitis, left ankle and foot; E11.69 Type 2 diabetes mellitus with other specified complication; T81.31XD Disruption of external operation (surgical) wound, not elsewhere classified, subsequent encounter; E11.621 Type 2 diabetes mellitus with foot ulcer; L97.522 Non-pressure chronic ulcer of other part of left foot with fat layer exposed; L84 Corns and callosities; E11.51 Type 2 diabetes mellitus with diabetic peripheral angiopathy without gangrene; E11.22 Type 2 diabetes mellitus with diabetic chronic kidney disease; I12.0 Hypertensive chronic kidney disease with stage 5 chronic kidney disease or end stage renal disease; N18.6 End stage renal disease; K21.9 Gastro-esophageal reflux disease without esophagitis; E78.00 Pure hypercholesterolemia, unspecified; R26.2 Difficulty in walking, not elsewhere classified; Z87.891 Personal history of nicotine dependence; Z99.2 Dependence on renal dialysis; Z79.82 Long term (current) use of aspirin; Z79.899 Other long term (current) drug therapy; Y83.8 Other surgical procedures as the cause of abnormal reaction of the patient, or of later complication, without mention of misadventure at the time of the procedure ==

== ENCOUNTER → 2023-12-26 | Outpatient (CLI) | payer OTHER, MEDICAID | END | disposition home or self-care (01) | LOC: WOUNDCARE 00:12 | PROVIDERS: ATTEND Nurse Practitioner Family | DX: M86.671 Other chronic osteomyelitis, right ankle and foot (principal); M86.672 Other chronic osteomyelitis, left ankle and foot; E11.69 Type 2 diabetes mellitus with other specified complication; T81.31XD Disruption of external operation (surgical) wound, not elsewhere classified, subsequent encounter; E11.621 Type 2 diabetes mellitus with foot ulcer; L97.522 Non-pressure chronic ulcer of other part of left foot with fat layer exposed; L84 Corns and callosities; E11.51 Type 2 diabetes mellitus with diabetic peripheral angiopathy without gangrene; E11.22 Type 2 diabetes mellitus with diabetic chronic kidney disease; I12.0 Hypertensive chronic kidney disease with stage 5 chronic kidney disease or end stage renal disease; N18.6 End stage renal disease; K21.9 Gastro-esophageal reflux disease without esophagitis; E78.00 Pure hypercholesterolemia, unspecified; R26.2 Difficulty in walking, not elsewhere classified; Z87.891 Personal history of nicotine dependence; Z89.432 Acquired absence of left foot; Z99.2 Dependence on renal dialysis; Z79.82 Long term (current) use of aspirin; Z79.899 Other long term (current) drug therapy; Y83.8 Other surgical procedures as the cause of abnormal reaction of the patient, or of later complication, without mention of misadventure at the time of the procedure ==

== ENCOUNTER → 2023-12-30 | Outpatient (CLI) | payer OTHER, MEDICAID | END | disposition home or self-care (01) | LOC: WOUNDCARE 03:19 | PROVIDERS: ATTEND Nurse Practitioner Family | DX: M86.671 Other chronic osteomyelitis, right ankle and foot (principal); M86.672 Other chronic osteomyelitis, left ankle and foot; E11.69 Type 2 diabetes mellitus with other specified complication; T81.31XD Disruption of external operation (surgical) wound, not elsewhere classified, subsequent encounter; E11.621 Type 2 diabetes mellitus with foot ulcer; L97.525 Non-pressure chronic ulcer of other part of left foot with muscle involvement without evidence of necrosis; L84 Corns and callosities; E11.51 Type 2 diabetes mellitus with diabetic peripheral angiopathy without gangrene; E11.22 Type 2 diabetes mellitus with diabetic chronic kidney disease; I12.0 Hypertensive chronic kidney disease with stage 5 chronic kidney disease or end stage renal disease; N18.6 End stage renal disease; K21.9 Gastro-esophageal reflux disease without esophagitis; E78.00 Pure hypercholesterolemia, unspecified; R26.2 Difficulty in walking, not elsewhere classified; Z87.891 Personal history of nicotine dependence; Z89.432 Acquired absence of left foot; Z99.2 Dependence on renal dialysis; Z79.82 Long term (current) use of aspirin; Z79.899 Other long term (current) drug therapy; Y83.8 Other surgical procedures as the cause of abnormal reaction of the patient, or of later complication, without mention of misadventure at the time of the procedure ==

== ENCOUNTER → 2024-01-02 | Outpatient (CLI) | payer OTHER, MEDICAID | END | disposition home or self-care (01) | LOC: WOUNDCARE 02:32 | PROVIDERS: ATTEND Nurse Practitioner Family | DX: M86.671 Other chronic osteomyelitis, right ankle and foot (principal); M86.672 Other chronic osteomyelitis, left ankle and foot; E11.69 Type 2 diabetes mellitus with other specified complication; T81.31XD Disruption of external operation (surgical) wound, not elsewhere classified, subsequent encounter; E11.621 Type 2 diabetes mellitus with foot ulcer; L97.525 Non-pressure chronic ulcer of other part of left foot with muscle involvement without evidence of necrosis; L84 Corns and callosities; E11.51 Type 2 diabetes mellitus with diabetic peripheral angiopathy without gangrene; E11.22 Type 2 diabetes mellitus with diabetic chronic kidney disease; I12.0 Hypertensive chronic kidney disease with stage 5 chronic kidney disease or end stage renal disease; N18.6 End stage renal disease; K21.9 Gastro-esophageal reflux disease without esophagitis; E78.00 Pure hypercholesterolemia, unspecified; R26.2 Difficulty in walking, not elsewhere classified; Z87.891 Personal history of nicotine dependence; Z89.432 Acquired absence of left foot; Z99.2 Dependence on renal dialysis; Z79.82 Long term (current) use of aspirin; Z79.899 Other long term (current) drug therapy; Y83.8 Other surgical procedures as the cause of abnormal reaction of the patient, or of later complication, without mention of misadventure at the time of the procedure ==

== ENCOUNTER → 2024-01-03 | Outpatient (CLI) | payer OTHER, MEDICAID | END | disposition home or self-care (01) | LOC: WOUNDCARE 02:27 | PROVIDERS: ATTEND Nurse Practitioner Family | DX: M86.671 Other chronic osteomyelitis, right ankle and foot (principal); M86.172 Other acute osteomyelitis, left ankle and foot; E11.69 Type 2 diabetes mellitus with other specified complication; T81.31XD Disruption of external operation (surgical) wound, not elsewhere classified, subsequent encounter; E11.51 Type 2 diabetes mellitus with diabetic peripheral angiopathy without gangrene; R26.2 Difficulty in walking, not elsewhere classified; E11.22 Type 2 diabetes mellitus with diabetic chronic kidney disease; I12.0 Hypertensive chronic kidney disease with stage 5 chronic kidney disease or end stage renal disease; N18.6 End stage renal disease; K21.9 Gastro-esophageal reflux disease without esophagitis; E78.00 Pure hypercholesterolemia, unspecified; Z89.432 Acquired absence of left foot; Z87.891 Personal history of nicotine dependence; Z99.2 Dependence on renal dialysis; Y83.8 Other surgical procedures as the cause of abnormal reaction of the patient, or of later complication, without mention of misadventure at the time of the procedure ==

== ENCOUNTER → 2024-01-04 | Outpatient (CLI) | payer OTHER, MEDICAID | END | disposition home or self-care (01) | LOC: WOUNDCARE 02:23 | PROVIDERS: ATTEND Nurse Practitioner Family | DX: M86.671 Other chronic osteomyelitis, right ankle and foot (principal); M86.672 Other chronic osteomyelitis, left ankle and foot; E11.69 Type 2 diabetes mellitus with other specified complication; T81.31XD Disruption of external operation (surgical) wound, not elsewhere classified, subsequent encounter; E11.621 Type 2 diabetes mellitus with foot ulcer; L97.525 Non-pressure chronic ulcer of other part of left foot with muscle involvement without evidence of necrosis; L84 Corns and callosities; E11.51 Type 2 diabetes mellitus with diabetic peripheral angiopathy without gangrene; E11.22 Type 2 diabetes mellitus with diabetic chronic kidney disease; I12.0 Hypertensive chronic kidney disease with stage 5 chronic kidney disease or end stage renal disease; N18.6 End stage renal disease; K21.9 Gastro-esophageal reflux disease without esophagitis; E78.00 Pure hypercholesterolemia, unspecified; R26.2 Difficulty in walking, not elsewhere classified; Z87.891 Personal history of nicotine dependence; Z89.432 Acquired absence of left foot; Z99.2 Dependence on renal dialysis; Z79.82 Long term (current) use of aspirin; Z79.899 Other long term (current) drug therapy; Y83.8 Other surgical procedures as the cause of abnormal reaction of the patient, or of later complication, without mention of misadventure at the time of the procedure ==

== ENCOUNTER → 2024-01-05 | Outpatient (CLI) | payer OTHER, MEDICAID | END | disposition home or self-care (01) | LOC: WOUNDCARE 00:33 | PROVIDERS: ATTEND Nurse Practitioner Family | DX: M86.671 Other chronic osteomyelitis, right ankle and foot (principal); M86.672 Other chronic osteomyelitis, left ankle and foot; E11.69 Type 2 diabetes mellitus with other specified complication; T81.31XD Disruption of external operation (surgical) wound, not elsewhere classified, subsequent encounter; E11.621 Type 2 diabetes mellitus with foot ulcer; L97.525 Non-pressure chronic ulcer of other part of left foot with muscle involvement without evidence of necrosis; L84 Corns and callosities; E11.51 Type 2 diabetes mellitus with diabetic peripheral angiopathy without gangrene; E11.22 Type 2 diabetes mellitus with diabetic chronic kidney disease; I12.0 Hypertensive chronic kidney disease with stage 5 chronic kidney disease or end stage renal disease; N18.6 End stage renal disease; K21.9 Gastro-esophageal reflux disease without esophagitis; E78.00 Pure hypercholesterolemia, unspecified; R26.2 Difficulty in walking, not elsewhere classified; Z87.891 Personal history of nicotine dependence; Z89.432 Acquired absence of left foot; Z99.2 Dependence on renal dialysis; Z79.82 Long term (current) use of aspirin; Z79.899 Other long term (current) drug therapy; Y83.8 Other surgical procedures as the cause of abnormal reaction of the patient, or of later complication, without mention of misadventure at the time of the procedure ==

== ENCOUNTER → 2024-01-06 | Outpatient (CLI) | payer OTHER, MEDICAID | END | disposition home or self-care (01) | LOC: WOUNDCARE 01:59 | PROVIDERS: ATTEND Nurse Practitioner Family | DX: M86.671 Other chronic osteomyelitis, right ankle and foot (principal); M86.672 Other chronic osteomyelitis, left ankle and foot; E11.69 Type 2 diabetes mellitus with other specified complication; T81.31XD Disruption of external operation (surgical) wound, not elsewhere classified, subsequent encounter; E11.621 Type 2 diabetes mellitus with foot ulcer; L97.525 Non-pressure chronic ulcer of other part of left foot with muscle involvement without evidence of necrosis; L84 Corns and callosities; E11.51 Type 2 diabetes mellitus with diabetic peripheral angiopathy without gangrene; E11.22 Type 2 diabetes mellitus with diabetic chronic kidney disease; I12.0 Hypertensive chronic kidney disease with stage 5 chronic kidney disease or end stage renal disease; N18.6 End stage renal disease; K21.9 Gastro-esophageal reflux disease without esophagitis; E78.00 Pure hypercholesterolemia, unspecified; R26.2 Difficulty in walking, not elsewhere classified; Z87.891 Personal history of nicotine dependence; Z89.432 Acquired absence of left foot; Z99.2 Dependence on renal dialysis; Z79.82 Long term (current) use of aspirin; Z79.899 Other long term (current) drug therapy; Y83.8 Other surgical procedures as the cause of abnormal reaction of the patient, or of later complication, without mention of misadventure at the time of the procedure ==

== ENCOUNTER → 2024-01-09 | Outpatient (CLI) | payer OTHER, MEDICAID ==
[2024-01-09 14:24] LABS: POTASSIUM 4.5 mmol/L (3.4-5.1); TOTAL PROTEIN 8.6 gm/dL (6.0-8.0)
[2024-01-09 14:25] LABS: ACT PARTIAL THROMBO TIME 27.7 SECONDS (20.0-32.1)
== END | disposition home or self-care (01) ==
LOC: LAB 13:28
PROVIDERS: ATTEND Orthopaedic Surgery
DX: M86.171 Other acute osteomyelitis, right ankle and foot (principal); L97.512 Non-pressure chronic ulcer of other part of right foot with fat layer exposed; I73.9 Peripheral vascular disease, unspecified; Z99.2 Dependence on renal dialysis

== ENCOUNTER → 2024-01-09 | Outpatient (CLI) | payer OTHER, MEDICAID ==
[~2024-01-09] MED LIST changes: +AMLODIPINE BES2.5 MG PO; +CLOPIDOGREL75 MG PO
== END | disposition home or self-care (01) ==
LOC: WOUNDCARE 01:58
PROVIDERS: ATTEND Nurse Practitioner Family
DX: T81.31XD Disruption of external operation (surgical) wound, not elsewhere classified, subsequent encounter (principal); E11.621 Type 2 diabetes mellitus with foot ulcer; L97.515 Non-pressure chronic ulcer of other part of right foot with muscle involvement without evidence of necrosis; E11.69 Type 2 diabetes mellitus with other specified complication; M86.671 Other chronic osteomyelitis, right ankle and foot; M86.172 Other acute osteomyelitis, left ankle and foot; E11.51 Type 2 diabetes mellitus with diabetic peripheral angiopathy without gangrene; E11.22 Type 2 diabetes mellitus with diabetic chronic kidney disease; I12.0 Hypertensive chronic kidney disease with stage 5 chronic kidney disease or end stage renal disease; N18.6 End stage renal disease; R26.2 Difficulty in walking, not elsewhere classified; E78.00 Pure hypercholesterolemia, unspecified; K21.9 Gastro-esophageal reflux disease without esophagitis; Z89.432 Acquired absence of left foot; Z87.891 Personal history of nicotine dependence; Z99.2 Dependence on renal dialysis; Y83.8 Other surgical procedures as the cause of abnormal reaction of the patient, or of later complication, without mention of misadventure at the time of the procedure

== ENCOUNTER → 2024-01-10 | Outpatient (CLI) | payer OTHER, MEDICAID ==
[~2024-01-10] MED LIST changes: +CEFAZOLIN2 GM/20 ML IV; +METRONIDAZOLE500 M1 PO
== END | disposition home or self-care (01) ==
LOC: WOUNDCARE 01:02
PROVIDERS: ATTEND Nurse Practitioner Family
DX: M86.671 Other chronic osteomyelitis, right ankle and foot (principal); M86.672 Other chronic osteomyelitis, left ankle and foot; E11.69 Type 2 diabetes mellitus with other specified complication; T81.31XD Disruption of external operation (surgical) wound, not elsewhere classified, subsequent encounter; E11.621 Type 2 diabetes mellitus with foot ulcer; L97.525 Non-pressure chronic ulcer of other part of left foot with muscle involvement without evidence of necrosis; L84 Corns and callosities; E11.51 Type 2 diabetes mellitus with diabetic peripheral angiopathy without gangrene; E11.22 Type 2 diabetes mellitus with diabetic chronic kidney disease; I12.0 Hypertensive chronic kidney disease with stage 5 chronic kidney disease or end stage renal disease; N18.6 End stage renal disease; K21.9 Gastro-esophageal reflux disease without esophagitis; E78.00 Pure hypercholesterolemia, unspecified; R26.2 Difficulty in walking, not elsewhere classified; Z87.891 Personal history of nicotine dependence; Z89.432 Acquired absence of left foot; Z99.2 Dependence on renal dialysis; Z79.82 Long term (current) use of aspirin; Z79.899 Other long term (current) drug therapy; Y83.8 Other surgical procedures as the cause of abnormal reaction of the patient, or of later complication, without mention of misadventure at the time of the procedure

== ENCOUNTER → 2024-04-30 | Outpatient (CLI) | payer OTHER, MEDICAID | END | disposition home or self-care (01) | LOC: ORTHO 02:00 → RAD 02:00 | PROVIDERS: ATTEND Orthopaedic Surgery | DX: M77.31 Calcaneal spur, right foot (principal); M86.8X7 Other osteomyelitis, ankle and foot ==

== ENCOUNTER 2024-08-15 21:51 | Emergency (ER) | payer OTHER, MEDICAID ==
[~2024-08-15] VITALS: Ht 170.1 cm; Wt 91.9 kg
[2024-08-15 21:54] VITALS: BP 126/72
[2024-08-15 22:07] LABS: BASO % 0.3 % (0.0-1.0); EOS # 0.1 10*3/uL (0.0-0.4); EOS % 0.6 % (1.0-4.0); HEMATOCRIT 49.4 % (37.0-47.0); MEAN CELL VOLUME 89.2 fl (81.0-99.0); MEAN CORPUSCULAR HGB 26.7 pg (27.0-31.0); MEAN PLATELET VOLUME 10.2 fl (9.6-12.3); MONO # 0.5 10*3/uL (0.1-1.0); MONO % 4.8 % (3.0-9.0); NEUT # 8.3 10*3/uL (2.3-7.9); PLATELET COUNT AUTOMATED 154 10*3/uL (130-400); RED BLOOD COUNT 5.54 10*6/uL (4.10-5.10); RED CELL DISTRI WIDTH 19.1 % (0-14.5); WHITE BLOOD COUNT 9.3 10*3/uL (4.8-10.8)
[2024-08-15] MEDS ORDERED: SODIUM CHLORIDE 0.9% 1,000 ML IV ONE (22:10)
[2024-08-15] MEDS ORDERED: Ondansetron Hydrochloride 4 MG/2 ML VIAL IV ONE (22:10)
[2024-08-15 22:36] LABS: ALKALINE PHOSPHATASE 124 U/L (46-116); BUN 25 mg/dl (9-23); CHLORIDE 96 mmol/L (98-107); LIPASE 24 U/L (12-53); POTASSIUM 3.3 mmol/L (3.4-5.1); SGPT/ALT < 7 U/L (5-49); TOTAL PROTEIN 7.6 gm/dL (6.0-8.0)
[2024-08-15] MEDS ORDERED: TRADJENTA5 M1 PO (23:46)
[2024-08-16] MEDS ORDERED: Ondansetron4 MG PO (04:57)
== END 2024-08-16 05:42 | disposition home or self-care (01) ==
LOC: ED 21:51
PROVIDERS: Internal Medicine
DX: K52.9 Noninfective gastroenteritis and colitis, unspecified (principal); K80.20 Calculus of gallbladder without cholecystitis without obstruction; I12.9 Hypertensive chronic kidney disease with stage 1 through stage 4 chronic kidney disease, or unspecified chronic kidney disease; E11.22 Type 2 diabetes mellitus with diabetic chronic kidney disease; N18.6 End stage renal disease; E44.1 Mild protein-calorie malnutrition; E87.8 Other disorders of electrolyte and fluid balance, not elsewhere classified; Q61.3 Polycystic kidney, unspecified; Z99.2 Dependence on renal dialysis; Z79.899 Other long term (current) drug therapy; Z88.1 Allergy status to other antibiotic agents; Z98.51 Tubal ligation status; Z98.890 Other specified postprocedural states

== ENCOUNTER → 2024-09-29 | Outpatient (CLI) | payer OTHER, MEDICAID ==
[~2024-09-29] MED LIST changes: +Ondansetron4 MG PO; +TRADJENTA5 M1 PO
== END | disposition home or self-care (01) ==
LOC: US 00:29
PROVIDERS: ATTEND Orthopaedic Surgery
DX: I70.201 Unspecified atherosclerosis of native arteries of extremities, right leg (principal)

== ENCOUNTER → 2024-10-18 | Day surgery (SDC) | payer OTHER, MEDICAID ==
[2024-10-15 10:19] LABS: BUN 19.0 mg/dl (9-23)
[~2024-10-18] VITALS: Ht 170.1 cm; Wt 92.5 kg
[~2024-10-18] MED LIST changes: +ACETAMINOPHEN 100 ML IV ONE; +Dexamethasone Sodium Phospha 4 MG/ML VIAL IV ONE; +Lactated Ringer's Solution 500 ML IV ONE; +OXYCODONE-ACET1 EAC3 PO; +Ondansetron Hydrochloride 4 MG/2 ML VIAL IV ONE; +PROPOFOL 200 MG/20 ML VIAL IV ONE; +SEVOFLURANE 250 ML BOT INH ONE; +SODIUM CHLORIDE 0.9% 100 ML IV ONE; +VAZALORE81 MG PO; +ceFAZolin sodium 2GM/20ML IV ONE; +ceFAZolin sodium/sodium chlor 20 ML IV ONE; +ePHEDrine Sulfate 25 MG/5 ML SYRINGE IV ONE
[2024-10-18 07:16] VITALS: BP 184/85
[2024-10-18 08:14] VITALS: BP 138/74
[2024-10-18 08:29] VITALS: BP 150/78
[2024-10-18 08:44] VITALS: BP 154/73
[2024-10-18 08:59] VITALS: BP 143/70
[2024-10-18 09:12] VITALS: BP 152/70
== END | disposition home or self-care (01) ==
LOC: SDC 00:41
PROVIDERS: ATTEND Orthopaedic Surgery
DX: E11.52 Type 2 diabetes mellitus with diabetic peripheral angiopathy with gangrene (principal); M86.171 Other acute osteomyelitis, right ankle and foot; E11.621 Type 2 diabetes mellitus with foot ulcer; K21.9 Gastro-esophageal reflux disease without esophagitis; E11.22 Type 2 diabetes mellitus with diabetic chronic kidney disease; I12.0 Hypertensive chronic kidney disease with stage 5 chronic kidney disease or end stage renal disease; N18.6 End stage renal disease; Z98.890 Other specified postprocedural states; Z87.891 Personal history of nicotine dependence; Z79.899 Other long term (current) drug therapy; Z98.51 Tubal ligation status; Z88.8 Allergy status to other drugs, medicaments and biological substances

== ENCOUNTER → 2024-11-19 | Outpatient (CLI) | payer OTHER, MEDICAID ==
[~2024-11-19] MED LIST changes: -ACETAMINOPHEN 100 ML IV ONE; -Dexamethasone Sodium Phospha 4 MG/ML VIAL IV ONE; -Lactated Ringer's Solution 500 ML IV ONE; -Ondansetron Hydrochloride 4 MG/2 ML VIAL IV ONE; -PROPOFOL 200 MG/20 ML VIAL IV ONE; -SEVOFLURANE 250 ML BOT INH ONE; -SODIUM CHLORIDE 0.9% 100 ML IV ONE; -ceFAZolin sodium 2GM/20ML IV ONE; -ceFAZolin sodium/sodium chlor 20 ML IV ONE; -ePHEDrine Sulfate 25 MG/5 ML SYRINGE IV ONE
== END | disposition home or self-care (01) ==
LOC: RAD 08:41
PROVIDERS: ATTEND Internal Medicine
DX: M81.0 Age-related osteoporosis without current pathological fracture (principal); Z78.0 Asymptomatic menopausal state

== ENCOUNTER → 2025-02-05 | Outpatient (CLI) | payer OTHER, MEDICAID | END | disposition home or self-care (01) | LOC: US 00:43 | PROVIDERS: ATTEND Orthopaedic Surgery | DX: L97.512 Non-pressure chronic ulcer of other part of right foot with fat layer exposed (principal); M25.871 Other specified joint disorders, right ankle and foot ==

== ENCOUNTER → 2025-02-14 | Day surgery (SDC) | payer OTHER, MEDICAID ==
[~2025-02-14] VITALS: Ht 172.7 cm; Wt 92.5 kg
[~2025-02-14] MED LIST changes: +ACETAMINOPHEN 100 ML IV ONE; +Ketamine Hydrochloride 50 MG/5 ML SYRINGE IV ONE; +Lactated Ringer's Solution 1,000 ML IV ONE; +Lidocaine Hydrochloride 30 ML VIAL ONE; +Lidocaine Hydrochloride 5 ML VIAL IV ONE; +PROPOFOL 200 MG/20 ML VIAL IV ONE; +TYLENOL325 M2 PO; +ceFAZolin sodium/sodium chlor 20 ML IV ONE
[2025-02-14 10:00] VITALS: BP 174/84
[2025-02-14 10:42] LABS: BUN 38.0 mg/dl (9-23)
[2025-02-14 11:58] VITALS: BP 135/91
[2025-02-14 12:13] VITALS: BP 122/60
[2025-02-14 12:28] VITALS: BP 164/98
== END | disposition home or self-care (01) ==
LOC: SDC 02-12 10:15
PROVIDERS: ATTEND Orthopaedic Surgery
DX: E11.52 Type 2 diabetes mellitus with diabetic peripheral angiopathy with gangrene (principal); M86.171 Other acute osteomyelitis, right ankle and foot; E11.22 Type 2 diabetes mellitus with diabetic chronic kidney disease; I12.0 Hypertensive chronic kidney disease with stage 5 chronic kidney disease or end stage renal disease; N18.6 End stage renal disease; Z99.2 Dependence on renal dialysis; Z98.890 Other specified postprocedural states; Z79.899 Other long term (current) drug therapy; Z87.891 Personal history of nicotine dependence; Z88.8 Allergy status to other drugs, medicaments and biological substances

== ENCOUNTER → 2025-02-25 | Outpatient (CLI) | payer OTHER, MEDICAID ==
[~2025-02-25] MED LIST changes: -ACETAMINOPHEN 100 ML IV ONE; -Ketamine Hydrochloride 50 MG/5 ML SYRINGE IV ONE; -Lactated Ringer's Solution 1,000 ML IV ONE; -Lidocaine Hydrochloride 30 ML VIAL ONE; -Lidocaine Hydrochloride 5 ML VIAL IV ONE; -PROPOFOL 200 MG/20 ML VIAL IV ONE; -ceFAZolin sodium/sodium chlor 20 ML IV ONE
== END | disposition home or self-care (01) ==
LOC: WOUNDCARE 05:07
PROVIDERS: ATTEND Nurse Practitioner Family
DX: T81.31XA Disruption of external operation (surgical) wound, not elsewhere classified, initial encounter (principal); E11.52 Type 2 diabetes mellitus with diabetic peripheral angiopathy with gangrene; I96 Gangrene, not elsewhere classified; E11.22 Type 2 diabetes mellitus with diabetic chronic kidney disease; I12.0 Hypertensive chronic kidney disease with stage 5 chronic kidney disease or end stage renal disease; N18.6 End stage renal disease; E11.69 Type 2 diabetes mellitus with other specified complication; M86.171 Other acute osteomyelitis, right ankle and foot; E78.00 Pure hypercholesterolemia, unspecified; K21.9 Gastro-esophageal reflux disease without esophagitis; Z99.2 Dependence on renal dialysis; Z89.421 Acquired absence of other right toe(s); Z98.890 Other specified postprocedural states; Z87.891 Personal history of nicotine dependence; Z79.82 Long term (current) use of aspirin; Z79.899 Other long term (current) drug therapy; Y83.8 Other surgical procedures as the cause of abnormal reaction of the patient, or of later complication, without mention of misadventure at the time of the procedure; Y92.89 Other specified places as the place of occurrence of the external cause

== ENCOUNTER → 2025-03-04 | Outpatient (CLI) | payer OTHER, MEDICAID | END | disposition home or self-care (01) | LOC: WOUNDCARE 05:46 → MAMMO 14:00 | PROVIDERS: ATTEND Internal Medicine | DX: T81.31XD Disruption of external operation (surgical) wound, not elsewhere classified, subsequent encounter (principal); E11.52 Type 2 diabetes mellitus with diabetic peripheral angiopathy with gangrene; I96 Gangrene, not elsewhere classified; E11.69 Type 2 diabetes mellitus with other specified complication; M86.171 Other acute osteomyelitis, right ankle and foot; E11.22 Type 2 diabetes mellitus with diabetic chronic kidney disease; I12.0 Hypertensive chronic kidney disease with stage 5 chronic kidney disease or end stage renal disease; N18.6 End stage renal disease; E78.00 Pure hypercholesterolemia, unspecified; K21.9 Gastro-esophageal reflux disease without esophagitis; Z99.2 Dependence on renal dialysis; Z89.421 Acquired absence of other right toe(s); Z98.890 Other specified postprocedural states; Z87.891 Personal history of nicotine dependence; Z79.82 Long term (current) use of aspirin; Z79.899 Other long term (current) drug therapy; Z12.31 Encounter for screening mammogram for malignant neoplasm of breast; Y83.8 Other surgical procedures as the cause of abnormal reaction of the patient, or of later complication, without mention of misadventure at the time of the procedure ==

== ENCOUNTER → 2025-03-11 | Outpatient (CLI) | payer OTHER, MEDICAID | END | disposition home or self-care (01) | LOC: WOUNDCARE 02:11 | PROVIDERS: ATTEND Nurse Practitioner Family | DX: T81.31XD Disruption of external operation (surgical) wound, not elsewhere classified, subsequent encounter (principal); E11.69 Type 2 diabetes mellitus with other specified complication; M86.171 Other acute osteomyelitis, right ankle and foot; E11.22 Type 2 diabetes mellitus with diabetic chronic kidney disease; N18.6 End stage renal disease; I12.0 Hypertensive chronic kidney disease with stage 5 chronic kidney disease or end stage renal disease; E11.52 Type 2 diabetes mellitus with diabetic peripheral angiopathy with gangrene; I96 Gangrene, not elsewhere classified; E78.00 Pure hypercholesterolemia, unspecified; K21.9 Gastro-esophageal reflux disease without esophagitis; Z99.2 Dependence on renal dialysis; Z87.891 Personal history of nicotine dependence; Z89.421 Acquired absence of other right toe(s); Y83.8 Other surgical procedures as the cause of abnormal reaction of the patient, or of later complication, without mention of misadventure at the time of the procedure ==